=== PATIENT | female | born 1980 | race Caucasian/White ===

== ENCOUNTER 2017-11-18 14:49 | Emergency (ER) | payer OTHER ==
[~2017-11-18] VITALS: Ht 157.5 cm; Wt 88.6 kg
[~2017-11-18 14:49] MED LIST: MOTRIN600 MG PO; NAPROXEN500 MG PO; NOHOMEMEDS; PEN-VEE K,VEET500 MG PO
[2017-11-18 15:53] LABS: HEMATOCRIT 36.3 % (36.0-46.0); HEMOGLOBIN 12.3 G/DL (11.9-15.5); MCH 30.4 PG (29.0-34.0); MCHC 33.9 G/DL (30.0-36.0); MCV 89.9 FL (83-99); PLATELET COUNT 348 K/uL (156-360); RBC DIS.WIDTH-CV 13.1 % (11.8-14.6); RBC DIS.WIDTH-SD 43.3 % (39-53); RED BLOOD COUNT 4.04 M/uL (3.80-5.20); WHITE BLOOD COUNT 8.9 K/uL (4.1-10.2)
[2017-11-18 16:06] LABS: CHLORIDE 102 mEq/L (99-109); POTASSIUM 4.2 mEq/L (3.7-5.4); SODIUM 137 mEq/L (136-147)
[2017-11-18 16:08] LABS: GLUCOSE 70 mg/dL (70-99); TOTAL PROTEIN 7.3 g/dL (6.4-8.3)
[2017-11-18 16:10] LABS: TOTAL BILIRUBIN 0.1 mg/dL (0.0-1.0)
[2017-11-18 16:11] LABS: ALKALINE PHOSPHATASE 53 IU/L (3-129)
[2017-11-18 16:12] LABS: CREATININE 0.8 mg/dL (0.6-1.3); GFR ESTIMATE (CALCULATED) > 59 mL/min/
[2017-11-18 16:13] LABS: AST (GOT) 13 IU/L (2-34); UREA NITROGEN (BUN) 14 mg/dL (9-23)
[2017-11-18 16:15] LABS: ALT (GPT) 11 IU/L (3-49); LIPASE 11 U/L (1.0-51.0)
[2017-11-18 16:19] LABS: APPEARANCE SL.HAZY ((CLEAR)); BILIRUBIN NEGATIVE; BLOOD NEGATIVE; COLOR YELLOW ((YELLOW)); GLUCOSE (STRIP) NEGATIVE; KETONES NEGATIVE; LEUKOCYTES SMALL; NITRITE NEGATIVE; PROTEIN (STRIP) NEGATIVE; SPECIFIC GRAVITY 1.012 (1.000-1.030); UROBILINOGEN 0.2 MG/DL (0.2-1.0)
[2017-11-18 16:23] LABS: QUANTITATIVE HCG < 4.0 MIU/ML
[2017-11-18 16:29] LABS: BACTERIA RARE /HPF; EPITHELIAL CELLS 1+ /HPF; MUCUS NONE SEEN /LPF; RED BLOOD CELLS 0-5 /HPF (0-5); WHITE BLOOD CELLS 0-5 /HPF (0-5)
[2017-11-18] MEDS ORDERED: NAPROSYN500 MG PO (18:41)
[2017-11-18] MEDS ORDERED: VENTOLIN HFA18 GM IH (18:41)
[2017-11-18 18:49] VITALS: BP 131/77
== END 2017-11-18 18:50 | disposition home or self-care (01) ==
LOC: EXP 14:49 → EME 14:49 → EXP 18:50
PROVIDERS: Nurse Practitioner Family
DX: J40 Bronchitis, not specified as acute or chronic (principal); R10.12 Left upper quadrant pain; K21.9 Gastro-esophageal reflux disease without esophagitis
CPT/HCPCS: 71046; 80053; 81003; 83690; 84702; 85027; 93005; 94640; 99281; 99285; J1885

== ENCOUNTER → 2018-01-04 | Outpatient (CLI) | payer OTHER ==
[~2018-01-04] VITALS: Ht 157.5 cm; Wt 89.0 kg
[~2018-01-04] MED LIST changes: +METHADOSE10 MG/1 ML PO; +NAPROSYN500 MG PO; +PROTONIX40 MG PO; +VENTOLIN HFA18 GM IH; +ZANTAC300 MG PO
== END | disposition home or self-care (01) ==
LOC: AMB 12:17
DX: K29.70 Gastritis, unspecified, without bleeding (principal); K59.09 Other constipation; F11.20 Opioid dependence, uncomplicated; F17.200 Nicotine dependence, unspecified, uncomplicated; E66.9 Obesity, unspecified; Z68.33 Body mass index [BMI] 33.0-33.9, adult; Z80.0 Family history of malignant neoplasm of digestive organs; Z80.3 Family history of malignant neoplasm of breast; Z83.71 Family history of colonic polyps; Z83.3 Family history of diabetes mellitus; Z81.1 Family history of alcohol abuse and dependence; Z83.49 Family history of other endocrine, nutritional and metabolic diseases
CPT/HCPCS: 88305; 88342 TC

== ENCOUNTER 2018-02-04 06:40 | Day surgery (SDC) | payer OTHER ==
[~2018-02-04] VITALS: Ht 157.5 cm; Wt 86.2 kg
[~2018-02-04 06:40] MED LIST changes: +ADVIL200 MG PO; +BUSPAR10 MG PO; +FLONASE ALLERG9.9 ML BOTH NARES; +ULTRAM50 MG PO
[2018-02-04 07:02] VITALS: BP 131/83
[2018-02-04] MEDS ORDERED: COLACE100 MG PO (10:19)
[2018-02-04] MEDS ORDERED: DILAUDID4 MG PO (10:19)
[2018-02-04 11:50] VITALS: BP 148/77
[2018-02-04 12:50] VITALS: BP 130/76
== END 2018-02-04 13:15 | disposition home or self-care (01) ==
LOC: SDC 06:40
PROC: 0FT44ZZ Resection of Gallbladder, Percutaneous Endoscopic Approach (ICD-10-PCS; principal; 2018-02-04)
DX: K80.10 Calculus of gallbladder with chronic cholecystitis without obstruction (principal); F11.20 Opioid dependence, uncomplicated; K21.9 Gastro-esophageal reflux disease without esophagitis; R00.1 Bradycardia, unspecified; E66.9 Obesity, unspecified; Z68.34 Body mass index [BMI] 34.0-34.9, adult; Z87.891 Personal history of nicotine dependence
CPT/HCPCS: 88304; J0131; J1100; J1170; J2250; J2405; J2710; J3010; J7643; Q0175; S0074